=== PATIENT | male | born 1970 | race Hispanic/Latino ===

== ENCOUNTER 2018-09-06 18:30 | Emergency (ER) | payer OTHER ==
--- NOTE | 2018-09-06 18:52 | Event Note ---
ED Screening Note ED Screening Note: checked into [facility] and they brought him here states he is detoxing from ETOH states he last drank 1 1/2 hour ago states he had 5-6 drinks of vodka/cranberry states that he is from [place] and is here for [facility] pt is here for medical clearance has been in a facility previously for detox the last time was in June +smoker + cocaine, last used couple days ago no PMHx no daily meds no allergies to meds This initial assessment/diagnostic orders/clinical plan/treatment(s) is/are subject to change based on patients health status, clinical progression and re- assessment by fellow clinical providers in the ED. Further treatment and workup at subsequent clinical providers discretion. Patient/guardian urged not to elope from the ED as their condition may be serious if not clinically assessed and managed. Initial orders include: medical clearance
[2018-09-06 19:31] LABS: Basophils # (Auto) 0.1 K/mm3 (0.0-0.1); Basophils % (Auto) 0.7 % (0.0-1.8); Eosinophils # (Auto) 0.3 K/mm3 (0.0-0.4); Eosinophils % (Auto) 3.2 % (0.0-4.3); Hematocrit 48.6 % (35.5-45.6); Hemoglobin 16.5 gm/dl (11.8-15.2); Lymphocytes # (Auto) 1.8 K/mm3 (1.2-5.4); Lymphocytes % (Auto) 23.1 % (13.4-35.0); Mean Corpuscular HGB Conc 34 % (32-34); Mean Corpuscular Volume 94 fl (84-94); Monocytes # (Auto) 0.5 K/mm3 (0.0-0.8); Monocytes % (Auto) 6.1 % (0.0-7.3); Platelet Count 320 K/mm3 (140-440); Red Blood Count 5.15 M/mm3 (3.65-5.03); Red Cell Distribution Width 13.5 % (13.2-15.2)
[2018-09-06 19:49] LABS: Bilirubin,Urine NEG (Negative); Blood,Urine SM (Negative); Color,Urine Yellow (Yellow); Mucus,Urine FEW /HPF; Protein,Urine <15 mg/dL mg/dL (Negative); Urobilinogen,Urine < 2.0 mg/dL (<2.0); WBC,Urine < 1.0 /HPF (0.0-6.0)
[2018-09-06 19:58] LABS: Alanine Aminotransferase 153 units/L (7-56); Albumin 4.4 g/dL (3.9-5); BUN/Creatinine Ratio 14; Blood Urea Nitrogen 10 mg/dL (9-20); Calcium 9.5 mg/dL (8.4-10.2); Hemolysis Index 4
[2018-09-06 19:59] LABS: Amphetamine Screen,Urine PRESUMPTIVE NEGATIVE; Benzodiazepines Screen,Urine PRESUMPTIVE NEGATIVE; Cannabinoid Screen,Urine PRESUMPTIVE NEGATIVE; Methadone Screen,Urine PRESUMPTIVE NEGATIVE; Opiate Screen,Urine PRESUMPTIVE NEGATIVE
[2018-09-06 20:46] LABS: Cocaine Screen,Urine PRESUMPTIVE POSITIVE
--- NOTE | 2018-09-06 21:52 | Emergency Department Report ---
ED Alcohol HPI - General Chief Complaint: Medical Clearance Stated Complaint: DETOX Time Seen by Provider: 09/06/18 18:49 Source: patient Mode of arrival: Ambulatory Limitations: No Limitations - History of Present Illness Initial Comments: Mr. Jorge is a 48-year-old male with history of alcoholism who was brought by staff member at [facility] for medical clearance. He attempted to check into a rehabilitation program. However the staff member brought him to the emergency department for medical clearance. He is healthy. He has been his normal state of health. His last drink of alcohol was 1630. He has a history of alcohol withdrawal. While in previous rehabilitation program, he experienced delirium tremens. He denies suicidal or homicidal ideation. He has transportation previously arranged with staff at the detox center. Complaint: alcohol dependence, desires rehab, medical clearance for det Last Drink: just [employer] Chronic Alcohol Use: Yes Recent Trauma: No Associated Symptoms: denies other symptoms - Related Data Allergies Allergy/AdvReac Type Severity Reaction Status Date / Time No Known Allergies Allergy Unverified 09/06/18 18:34 ED Review of Systems ROS: Stated complaint: DETOX Other details as noted in HPI Comment: All other systems reviewed and negative Constitutional: denies: fever Respiratory: denies: cough Cardiovascular: denies: chest pain, palpitations Neurological: denies: headache, weakness Psychiatric: denies: anxiety, depression, auditory hallucinations, visual hallucinations, homicidal thoughts, suicidal thoughts ED Past Medical Hx - Past Medical History Previous Medical History?: No - Surgical History Past Surgical History?: Yes - Social History Smoking Status: Current Every Day Smoker Substance Use Type: Alcohol ED Physical Exam - General Limitations: No Limitations General appearance: alert, in no apparent distress - Head Head exam: Present: atraumatic, normocephalic - Eye Eye exam: Present: normal appearance - ENT ENT exam: Present: mucous membranes moist - Neck Neck exam: Present: normal inspection, full ROM - Respiratory Respiratory exam: Present: normal lung sounds bilaterally. Absent: respiratory distress, wheezes, rales, rhonchi - Cardiovascular Cardiovascular Exam: Present: regular rate, normal rhythm, normal heart sounds. Absent: bradycardia, tachycardia, systolic murmur, diastolic murmur, rubs, gallop - GI/Abdominal GI/Abdominal exam: Present: soft, normal bowel sounds. Absent: distended, tenderness, guarding, rebound - Rectal Rectal exam: Present: deferred - Extremities Exam Extremities exam: Present: normal inspection - Back Exam Back exam: Present: normal inspection - Neurological Exam Neurological exam: Present: alert, oriented X3 - Psychiatric Psychiatric exam: Present: normal affect, normal mood - Skin Skin exam: Present: warm, dry, intact, normal color. Absent: rash ED Course Vital Signs 09/06/18 09/06/18 18:50 21:27 Temperature 97.9 F Pulse Rate 73 85 Respiratory 18 16 Rate Blood Pressure 116/70 Blood Pressure 131/81 [Right] O2 Sat by Pulse 95 95 Oximetry ED Medical Decision Making - Lab Data Result diagrams: 09/06/18 19:00 09/06/18 19:00 Laboratory Results - last 24 hr 09/06/18 09/06/18 09/06/18 19:00 19:00 19:00 WBC 7.9 RBC 5.15 H Hgb 16.5 H Hct 48.6 H MCV 94 MCH 32 MCHC 34 RDW 13.5 Plt Count 320 Lymph % (Auto) 23.1 Garza % (Auto) 6.1 Eos % (Auto) 3.2 Baso % (Auto) 0.7 Lymph # 1.8 Garza # 0.5 Eos # 0.3 Baso # 0.1 Seg Neutrophils % 66.9 Seg Neutrophils # 5.3 Sodium 141 Potassium 4.2 Chloride 102.7 Carbon Dioxide 28 Anion Gap 15 BUN 10 Creatinine 0.7 L Estimated GFR > 60 BUN/Creatinine Ratio 14 Glucose 96 Calcium 9.5 Total Bilirubin 0.40 AST 104 H ALT 153 H Alkaline Phosphatase 56 Total Protein 7.9 Albumin 4.4 Albumin/Globulin Ratio 1.3 Urine Color Urine Turbidity Urine pH Ur Specific [place] Urine Protein Urine Glucose (UA) Urine Ketones Urine Blood Urine Nitrite Urine Bilirubin Urine Urobilinogen Ur Leukocyte Esterase Urine WBC (Auto) Urine RBC (Auto) U Epithel Cells (Auto) Urine Mucus Salicylates < 0.3 L Urine Opiates Screen Urine Methadone Screen Acetaminophen Ur Barbiturates Screen Ur Phencyclidine Scrn Ur Amphetamines Screen U Benzodiazepines Scrn Urine Cocaine Screen U Marijuana (THC) Screen Drugs of Abuse Note Plasma/Serum Alcohol 09/06/18 09/06/18 09/06/18 19:00 19:00 19:20 WBC RBC Hgb Hct MCV MCH MCHC RDW Plt Count Lymph % (Auto) Garza % (Auto) Eos % (Auto) Baso % (Auto) Lymph # Garza # Eos # Baso # Seg Neutrophils % Seg Neutrophils # Sodium Potassium Chloride Carbon Dioxide Anion Gap BUN Creatinine Estimated GFR BUN/Creatinine Ratio Glucose Calcium Total Bilirubin AST ALT Alkaline Phosphatase Total Protein Albumin Albumin/Globulin Ratio Urine Color Yellow Urine Turbidity Clear Urine pH 5.0 Ur Specific [place] 1.008 Urine Protein <15 mg/dl Urine Glucose (UA) Neg Urine Ketones Neg Urine Blood Sm Urine Nitrite Neg Urine Bilirubin Neg Urine Urobilinogen < 2.0 Ur Leukocyte Esterase Neg Urine WBC (Auto) < 1.0 Urine RBC (Auto) 2.0 U Epithel Cells (Auto) < 1.0 Urine Mucus Few Salicylates Urine Opiates Screen Urine Methadone Screen Acetaminophen < 5.0 L Ur Barbiturates Screen Ur Phencyclidine Scrn Ur Amphetamines Screen U Benzodiazepines Scrn Urine Cocaine Screen U Marijuana (THC) Screen Drugs of Abuse Note Plasma/Serum Alcohol 0.13 H 09/06/18 19:20 WBC RBC Hgb Hct MCV MCH MCHC RDW Plt Count Lymph % (Auto) Garza % (Auto) Eos % (Auto) Baso % (Auto) Lymph # Garza # Eos # Baso # Seg Neutrophils % Seg Neutrophils # Sodium Potassium Chloride Carbon Dioxide Anion Gap BUN Creatinine Estimated GFR BUN/Creatinine Ratio Glucose Calcium Total Bilirubin AST ALT Alkaline Phosphatase Total Protein Albumin Albumin/Globulin Ratio Urine Color Urine Turbidity Urine pH Ur Specific [place] Urine Protein Urine Glucose (UA) Urine Ketones Urine Blood Urine Nitrite Urine Bilirubin Urine Urobilinogen Ur Leukocyte Esterase Urine WBC (Auto) Urine RBC (Auto) U Epithel Cells (Auto) Urine Mucus Salicylates Urine Opiates Screen Presumptive negative Urine Methadone Screen Presumptive negative Acetaminophen Ur Barbiturates Screen Presumptive negative Ur Phencyclidine Scrn Presumptive negative Ur Amphetamines Screen Presumptive negative U Benzodiazepines Scrn Presumptive negative Urine Cocaine Screen Presumptive positive U Marijuana (THC) Screen Presumptive negative Drugs of Abuse Note Disclamer Plasma/Serum Alcohol - Medical Decision Making Mr. Jorge is medically clear for psychiatric care. Labs remarkable for blood alcohol level 0.13. UDS remarkable for positive cocaine screen. AST ALT elevated likely due to early alcoholic liver disease. He does not have an acute medical condition which needs further resuscitation or evaluation. He'll be discharged back to the [place] detox facility. A staff member from the center will provide transportation from the emergency department to the facility. Critical care attestation.: If time is entered above; I have spent that time in minutes in the direct care of this critically ill patient, excluding procedure time. ED Disposition Clinical Impression: Medical clearance for psychiatric admission, Acute alcohol dependence syndrome Disposition: [id number] TO HOME OR SELFCARE Is pt being admited?: No Does the pt Need Aspirin: No Condition: Stable Instructions: Medical Clearance for Substance Abuse Treatment (ED)
[2018-09-06 22:20] VITALS: BP 123/81
== END 2018-09-06 22:21 | disposition home or self-care (01) ==
LOC: EEVIPCON 18:30 → ED 18:30
DX: F10.20 Alcohol dependence, uncomplicated (principal); F17.200 Nicotine dependence, unspecified, uncomplicated; Y90.0 Blood alcohol level of less than 20 mg/100 ml
CPT/HCPCS: 36415; 80053; 80307; 81001; 85025; 99284; G0480; 80320